=== PATIENT | female | born 1995 | race Caucasian/White ===

== ENCOUNTER 2019-03-08 04:45 | Inpatient (IN) ==
[2019-03-08] MEDS ORDERED: ZOFRAN IV PRN (04:50)
[2019-03-08] MEDS ORDERED: REGLAN PO ONE (04:50)
[2019-03-08] MEDS ORDERED: STADOL IV PRN (04:50)
[2019-03-08] MEDS ORDERED: PEPCID PO ONE (04:50)
[2019-03-08] MEDS ORDERED: PEPCID PO PRN (04:50)
[2019-03-08] MEDS ORDERED: PEPCID IV PRN (04:50)
[2019-03-08] MEDS ORDERED: KEFZOL 1 GM/D5W 1 GM/50 ML IVPB IV PRN (04:50)
[2019-03-08] MEDS ORDERED: TYLENOL PO PRN (04:50)
[2019-03-08] MEDS ORDERED: SODIUM CHLORIDE 0.9% INJ SCH (05:00)
[2019-03-08] MEDS ORDERED: LR 1,000 ML IV SCH (05:00)
[2019-03-08] MEDS ORDERED: PITOCIN 30 UNITS/NS 30 UNIT/500 ML IV.SOLN IV SCH ×2 (06:30→15:15)
[2019-03-08 06:33] LABS: URINE SOURCE VOIDED
[2019-03-08 06:35] LABS: BASO# 0.02 X1000 (0.0-0.2); BASO% 0.2 % (0.0-0.8); EOS# 0.06 X1000 (0.0-0.7); EOS% 0.7 % (0.0-10.0); HEMATOCRIT 35.5 % (37.0-47.0); HEMOGLOBIN 11.2 g/dL (12.0-16.0); IMM GRAN# 0.03 X1000 (0.0-0.04); IMM GRAN% 0.3 % (0.0-0.5); LYMPH# 1.42 X1000 (1.2-3.4); LYMPH% 15.4 % (20.5-51.1); MCH 25.9 PG (27-31); MCHC 31.5 g/dL (33-37); MONO# 0.77 X1000 (0.11-0.59); MONO% 8.4 % (1.7-9.3); MPV 12.2 FL (7.4-10.4); PLT 166 X1000 (130-400); RBC 4.33 XMIL (4.2-5.4); RDW 14.1 % (11.5-14.5)
[2019-03-08 06:37] LABS: BILIRUBIN URINE NEGATIVE (NEGATIVE); BLOOD URINE NEGATIVE (NEGATIVE); COLOR YELLOW; GLUCOSE URINE NEGATIVE (NEGATIVE); KETONE URINE NEGATIVE (NEGATIVE); LEUKOCYTES URINE MODERATE (NEGATIVE); NITRITE URINE NEGATIVE (NEGATIVE); PH URINE 6.5; PROTEIN URINE NEGATIVE (NEGATIVE); SP GRAVITY URINE 1.019; TURBIDITY URINE CLEAR (CLEAR); UROBILINOGEN URINE NORMAL (NORMAL)
[2019-03-08 06:49] LABS: UR AMPHETAMINES QUAL NONE DETECTED (NONE DETECT); UR BARBITUATES QUAL NONE DETECTED (NONE DETECT); UR BENZODIAZEPIN QUAL NONE DETECTED (NONE DETECT); UR CANNABINOIDS QUAL NONE DETECTED (NONE DETECT); UR COCAINE QUAL NONE DETECTED (NONE DETECT); UR METHADONE QUAL NONE DETECTED (NONE DETECT); UR OPIATES QUAL NONE DETECTED (NONE DETECT); UR OXYCODONE QUAL NONE DETECTED (NONE DETECT); UR PCP QUAL NONE DETECTED (NONE DETECT)
[2019-03-08] MEDS ORDERED: FENTANYL-BUPIV-NS 500 MCG-0.125% 250 ML EPIDURAL PRN (09:24)
[2019-03-08] MEDS ORDERED: NAROPIN 0.2% INJ ONE (09:30)
--- NOTE | 2019-03-08 11:10 | HISTORY AND PHYSICAL ---
HISTORY OF PRESENT ILLNESS: Ms. Palacio is a 24-year-old, G3, P1-0-1-1, at 39 weeks and 1 day, who presents to Labor and Delivery for a scheduled induction of labor. The patient reports good movement. Denies contractions, leakage of fluid, or vaginal bleeding. History is significant for isolated seizures in the setting of general anesthesia. EEG was completed during current and found to be normal. The patient was evaluated throughout by Maternal Medicine. Currently not on any anticonvulsant medications. CURRENT MEDICATIONS: vitamins. ALLERGIES: No known drug allergies. PAST MEDICAL HISTORY: Exercise-induced asthma, anesthesia-induced isolated seizure. PAST SURGICAL HISTORY: Cholecystectomy, wisdom teeth extraction. FAMILY HISTORY: Maternal aunt with breast cancer. Maternal grandmother with ovarian cancer. OB HISTORY: [place], [place]-0[place]1-1, one prior SAB, one prior full-term vaginal delivery at 39 weeks, weighing 8 pounds 1 ounce. 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 Admits to regular menstrual cycles. SOCIAL HISTORY: Denies tobacco, alcohol, or drug use. PHYSICAL EXAMINATION: VITAL SIGNS: Temperature 98.4 degrees, pulse rate 95, respiration rate 20, blood pressure 123/72, O2 sats 97% on room air. Weight 180 pounds, height 5 feet 7 inches tall, body mass index 28.2 kg/m2. GENERAL: No acute distress. Alert, awake, oriented x3. CARDIOVASCULAR: Regular rate and rhythm. Positive S1, S2. RESPIRATORY: Clear to auscultation bilaterally. Negative rhonchi, rales, or wheezing. ABDOMEN: Gravid, soft, nontender to palpation. EXTREMITIES: Negative calf tenderness. There is +1 edema. PELVIC: Sterile vaginal exam, 3 cm dilated, 60% effaced, -3 station. Electronic monitoring, category 1 tracing. LABORATORY DATA: WBCs 9.2, hemoglobin 11.2, hematocrit 35.5, platelets 166,000. GBS negative. RPR nonreactive. ASSESSMENT: Mrs. Palacio is a 24-year-old, G3, P1-0-1-1, at 39 weeks and 1 day, who presents to Labor and Delivery for scheduled induction of labor. PLAN: 1. Admit to Labor and Delivery for scheduled induction. 2. Obtain routine labor labs. 3. Continuous electronic monitoring. 4. Induction with Pitocin and possible artificial rupture of membrane. 5. Does not desire epidural for pain management. 6. The patient is status post Tdap and influenza vaccine in antepartum. 7. Patient counseled on alternatives, risks, and benefits of induction of labor. Risks not limited to infection, bleeding, vaginal laceration, emergency delivery. The patient understands the risks, and agrees to procedure. 8. Estimated weight 8 pounds. 9. Anticipate vaginal delivery.
[2019-03-08] MEDS ORDERED: MINERAL OIL TOP PRN (12:58)
[2019-03-08] MEDS ORDERED: XYLOCAINE-MPF 1% INJ PRN ×2 (12:59→15:04)
[2019-03-08] MEDS ORDERED: FENTANYL IV ONE (13:40)
[2019-03-08] MEDS ORDERED: PERI MEDS (DERMOPLAST/NUPERCAINAL/TUCKS) MISC PRN (15:04)
[2019-03-08] MEDS ORDERED: BENADRYL IV PRN (15:04)
[2019-03-08] MEDS ORDERED: CYTOTEC PO PRN (15:04)
[2019-03-08] MEDS ORDERED: HYDROXYZINE IM PRN (15:04)
[2019-03-08] MEDS ORDERED: AMBIEN PO PRN (15:04)
[2019-03-08] MEDS ORDERED: PITOCIN IM PRN (15:04)
[2019-03-08] MEDS ORDERED: BOOSTRIX VACCINE IM ONE (15:04)
[2019-03-08] MEDS ORDERED: M-M-R II VACCINE SUBQ ONE (15:04)
[2019-03-08] MEDS ORDERED: MINERAL OIL PO PRN (15:04)
[2019-03-08] MEDS ORDERED: ATARAX PO PRN (15:04)
[2019-03-08] MEDS ORDERED: BENADRYL PO PRN (15:04)
[2019-03-08] MEDS ORDERED: PITOCIN 20 UNITS/NS 20 UNITS/1,000 ML IV.SOLN IV SCH (15:15)
[2019-03-08] MEDS: MOTRIN PO PRN (16:07)
[2019-03-08] MEDS: PERICOLACE PO SCH (22:25)
--- NOTE | 2019-03-08 22:31 | OPERATIVE NOTE ---
PROCEDURE DATE: 03/08/2019 PROCEDURE PERFORMED: Spontaneous vaginal delivery. SURGEON: Dr. Elsie Plata. TYPEWRITER MECHANIC: None. DESCRIPTION OF PROCEDURE: The patient delivered a viable male at 39 weeks and 1 day, weighing 8 pounds 7 ounces with Apgars of 8 at 10 at 1 and 5 minutes respectively. The vertex was delivered spontaneously over intact perineum. No nuchal cord was identified. The anterior shoulders were delivered atraumatically by maternal expulsive forces and the assistance of downward traction. The posterior shoulder delivered with maternal expulsive efforts and upward traction. The remainder of the fetus delivered spontaneously. Upon delivery, the infant was placed on the patient's chest and abdomen and assessed by waiting financial aid manager staff. Cord blood was obtained for blood gases. To enhance uterine contractions, IV oxytocin was administered post delivery of placenta. The cervix, vagina, and perineum were inspected for lacerations. A second- degree laceration was noted at the perineum and repaired with 2-0 chromic. Good hemostasis was obtained. ESTIMATED BLOOD LOSS: 200 mL.
[2019-03-09] MEDS: MOTRIN PO PRN ×3 (03:00→23:37)
[2019-03-09 07:51] LABS: BASO# 0.02 X1000 (0.0-0.2); BASO% 0.2 % (0.0-0.8); EOS# 0.05 X1000 (0.0-0.7); EOS% 0.5 % (0.0-10.0); HEMATOCRIT 34.6 % (37.0-47.0); HEMOGLOBIN 10.6 g/dL (12.0-16.0); IMM GRAN# 0.03 X1000 (0.0-0.04); IMM GRAN% 0.3 % (0.0-0.5); LYMPH# 1.46 X1000 (1.2-3.4); LYMPH% 13.2 % (20.5-51.1); MCH 25.6 PG (27-31); MCHC 30.6 g/dL (33-37); MCV 83.6 FL (81-99); MONO% 8.1 % (1.7-9.3); MPV 11.9 FL (7.4-10.4); NEUT# 8.62 X1000 (1.4-6.5); NEUT% 77.7 % (42.2-75.2); PLT 156 X1000 (130-400); RBC 4.14 XMIL (4.2-5.4); RDW 14.3 % (11.5-14.5); WBC 11.08 X1000 (4.8-10.8)
--- NOTE | 2019-03-09 13:03 | OB/GYN PROGRESS NOTE ---
- Subjective now PPD#1 S/P . Doing well, no c/o. and going well per patient. No CP or SOB. NO leg pains. Lochia minimal per patient. Tolerating regular diet. Ambulating and voiding OK. Flatus present. OB Physical Exam Vital Signs - 8 hr 03/09/19 08:00 Temperature 96.6 F L Pulse Rate 84 Blood Pressure 121/67 O2 Sat by Pulse Oximetry 95 - CONSTITUTIONAL General Appearance: appears well, alert, no apparent distress - RESPIRATORY Respiratory: lungs clear, normal breath sounds - CARDIOVASCULAR Cardiovascular: normal peripheral pulses, regular rate, rhythm, no edema - CHEST (BREASTS) Chest/Breast: deferred - GASTROINTESTINAL (ABDOMEN) Abdominal Exam: normal bowel sounds, non tender, soft, other (uterus firm, below umbilicus. No rebound or guarding. Mild tympany and gaseous distention.) - GENITOURINARY Female Genitalia/Pelvic Exam: external exam normal, other (minimal blood on pad noted. 2nd degree laceration repair in notes. Well appoximated and no edema noted.) - MUSCULOSKELETAL Extremity: non-tender, no pedal edema, no calf tenderness - PSYCHIATRIC Psych/Mental Status: normal mood/affect, oriented x 3 Active Medications Generic Name Dose Route Start Last Admin Trade Name Freq PRN Reason Stop Dose Admin Acetaminophen 650 mg 03/08/19 04:50 03/08/19 22:25 Tylenol PO 650 mg Q4-6H PRN PRN Administration Headache Benzocaine 1 each 03/08/19 15:04 03/08/19 16:47 Graciela Meds (Dermoplast/Nupercainal/Tucks) MISC 1 applic 3-4XDAY PRN PRN Administration episiotomy/hemorrhoids Butorphanol Tartrate 2 mg 03/08/19 04:50 03/08/19 13:30 Stadol IV 2 mg PRN PRN Administration Pain Diphenhydramine HCl 12.5 mg 03/08/19 15:04 Benadryl IV Q4H PRN PRN Itching Diphenhydramine HCl 25 mg 03/08/19 15:04 Benadryl PO Q4H PRN PRN Itching Famotidine 40 mg 03/08/19 04:50 Pepcid PO Q12H PRN PRN GI upset or indigestion Famotidine 20 mg 12/19/19 04:50 Pepcid IV Q12H PRN PRN GI upset or indigestion Hydroxyzine HCl 50 mg 03/08/19 15:04 Atarax PO Q3-4H PRN PRN Nausea Hydroxyzine HCl 50 mg 03/08/19 15:04 Hydroxyzine IM Q3-4H PRN PRN Nausea Cefazolin Sodium/Dextrose 1 gm in 50 mls @ 100 mls/hr 03/08/19 04:50 Kefzol 1 Gm/D5w IV ONCE PRN PRN SECTION Lactated Ringer's 1,000 mls @ 0 mls/hr 03/08/19 05:00 03/08/19 06:00 Lr IV 125 mls/hr .Q0M CORY Administration As Directed Oxytocin/Sodium Chloride 30 unit in 500 mls @ 0 mls/hr 03/08/19 06:30 03/08/19 07:00 Pitocin 30 Units/Ns IV 2 mls/hr .Q0M CORY Administration As Directed Fentanyl/Bupivacaine/Sodium Chlor 250 mls @ 0 mls/hr 03/08/19 09:24 [id number] 500 Mcg-0.125% EPIDURAL .Q0M PRN As Directed Oxytocin/Sodium Chloride 20 units in 1,000 mls @ 0 mls/hr 03/08/19 15:15 03/08/19 16:00 Pitocin 20 Units/Ns IV 125 mls/hr .Q0M CORY Administration As Directed Oxytocin/Sodium Chloride 30 unit in 500 mls @ 500 mls/hr 03/08/19 15:15 03/08/19 14:21 Pitocin 30 Units/Ns IV 500 mls/hr .Q1H CORY Administration Ibuprofen 800 mg 03/08/19 15:04 03/09/19 03:00 Motrin PO 800 mg Q8H PRN PRN Administration cramping Lidocaine HCl 30 ml 03/08/19 12:59 03/08/19 14:23 Xylocaine-Mpf 1% INJ 30 ml PRN PRN Administration Episiotomy repair Lidocaine HCl 30 ml 03/08/19 15:04 Xylocaine-Mpf 1% INJ PRN PRN Perineal repair Mineral Oil 30 ml 03/08/19 12:58 Mineral Oil TOP PRN PRN Vaginal delivery Mineral Oil 30 ml 03/08/19 15:04 Mineral Oil PO PRN PRN Perineal massage Misoprostol 800 microgm 03/08/19 15:04 Cytotec PO PRN PRN Severe bleeding Ondansetron HCl 4 mg 03/08/19 04:50 03/08/19 13:30 Zofran IV 4 mg PRN PRN Administration Nausea Oxytocin 20 unit 03/08/19 15:04 Pitocin IM PRN PRN Severe bleeding Senna/Docusate Sodium 1 each 03/08/19 21:00 03/08/19 22:25 Pericolace PO 1 each QHS CORY Administration Sodium Chloride 5 - 10 ml 03/08/19 05:00 Sodium Chloride 0.9% INJ DIRECTED CORY Zolpidem Tartrate 10 mg 03/08/19 15:04 Ambien PO HS PRN PRN Sleep Laboratory Results - last 24 hr 03/09/19 07:29 WBC 11.08 H RBC 4.14 L Hgb 10.6 L Hct 34.6 L MCV 83.6 MCH 25.6 L MCHC 30.6 L RDW Std Deviation 14.3 Plt Count 156 MPV 11.9 H Immature Gran % (Auto) 0.3 Neut % (Auto) 77.7 H Lymph % (Auto) 13.2 L [place] % (Auto) 8.1 Eos % (Auto) 0.5 Baso % (Auto) 0.2 Immature Gran # (Auto) 0.03 Neut # (Auto) 8.62 H Lymph # (Auto) 1.46 [place] # (Auto) 0.90 H Eos # (Auto) 0.05 Baso # (Auto) 0.02 OB Assessment & Plan (1) Status post vaginal delivery Status: Acute Plan: 1. Doing well, stable, continue PP care. Mild gaseous distention. Discussed ellen tea or MOM use. 2. -- encouragement given and discussed increase in water/fluid intake. Continue PNV use daily. 3. Ambulation encouraged. 4. Anticipate D/C home tomorrow. Flu vaccine and TDap given . Rubella Immune 5. Patient is considering control options and likely pill use or implant. Discussed importance of keeping 6 week post check. 6. Hgb pre 11.2 and post 10.6. Asymptomatic.
[2019-03-09] MEDS: PERICOLACE PO SCH (21:02)
[2019-03-10] MEDS: MOTRIN PO PRN (08:00)
--- NOTE | 2019-03-10 08:05 | OB/GYN PROGRESS NOTE ---
- Subjective now PPD#2 S/P . Doing well, no c/o. and going well per patient. No CP or SOB. NO leg pains. Lochia minimal per patient. Tolerating regular diet. Ambulating and voiding OK. Flatus present. BM yesterday no issues. Ready to go home. OB Physical Exam - CONSTITUTIONAL General Appearance: appears well, alert, no apparent distress - RESPIRATORY Respiratory: lungs clear, normal breath sounds - CARDIOVASCULAR Cardiovascular: normal peripheral pulses, regular rate, rhythm - CHEST (BREASTS) Chest/Breast: deferred - GASTROINTESTINAL (ABDOMEN) Abdominal Exam: normal bowel sounds, non tender, soft, other (Uterus firm below umbilicus Less gaseous distention and tympany today) - GENITOURINARY Female Genitalia/Pelvic Exam: external exam normal, other (scant blood on pad. External genitalia well approximated and no edema.) - MUSCULOSKELETAL Extremity: non-tender, no calf tenderness - PSYCHIATRIC Psych/Mental Status: normal mood/affect, oriented x 3 Active Medications Generic Name Dose Route Start Last Admin Trade Name Freq PRN Reason Stop Dose Admin Acetaminophen 650 mg 03/08/19 04:50 03/08/19 22:25 Tylenol PO 650 mg Q4-6H PRN PRN Administration Headache Benzocaine 1 each 03/08/19 15:04 03/08/19 16:47 Graciela Meds (Dermoplast/Nupercainal/Tucks) MISC 1 applic 3-4XDAY PRN PRN Administration episiotomy/hemorrhoids Diphenhydramine HCl 12.5 mg 03/08/19 15:04 Benadryl IV Q4H PRN PRN Itching Diphenhydramine HCl 25 mg 03/08/19 15:04 Benadryl PO Q4H PRN PRN Itching Famotidine 40 mg 03/08/19 04:50 Pepcid PO Q12H PRN PRN GI upset or indigestion Famotidine 20 mg 03/08/19 04:50 Pepcid IV Q12H PRN PRN GI upset or indigestion Hydroxyzine HCl 50 mg 03/08/19 15:04 Atarax PO Q3-4H PRN PRN Nausea Hydroxyzine HCl 50 mg 03/08/19 15:04 Hydroxyzine IM Q3-4H PRN PRN Nausea Fentanyl/Bupivacaine/Sodium Chlor 250 mls @ 0 mls/hr 03/08/19 09:24 [id number]-Czklm-Zd 500 Mcg-0.125% EPIDURAL .Q0M PRN As Directed Ibuprofen 800 mg 03/08/19 15:04 03/09/19 23:37 Motrin PO 800 mg Q8H PRN PRN Administration cramping Lidocaine HCl 30 ml 03/08/19 12:59 03/08/19 14:23 Xylocaine-Mpf 1% INJ 30 ml PRN PRN Administration Episiotomy repair Lidocaine HCl 30 ml 03/08/19 15:04 Xylocaine-Mpf 1% INJ PRN PRN Perineal repair Mineral Oil 30 ml 03/08/19 12:58 Mineral Oil TOP PRN PRN Vaginal delivery Mineral Oil 30 ml 03/08/19 15:04 Mineral Oil PO PRN PRN Perineal massage Misoprostol 800 microgm 03/08/19 15:04 Cytotec PO PRN PRN Severe bleeding Oxytocin 20 unit 03/08/19 15:04 Pitocin IM PRN PRN Severe bleeding Senna/Docusate Sodium 1 each 03/08/19 21:00 03/09/19 21:02 Pericolace PO 1 each QHS CORY Administration Sodium Chloride 5 - 10 ml 03/08/19 05:00 Sodium Chloride 0.9% INJ DIRECTED CORY Zolpidem Tartrate 10 mg 03/08/19 15:04 Ambien PO HS PRN PRN Sleep Laboratory Results - last 24 hr 03/09/19 07:29 WBC 11.08 H RBC 4.14 L Hgb 10.6 L Hct 34.6 L MCV 83.6 MCH 25.6 L MCHC 30.6 L RDW Std Deviation 14.3 Plt Count 156 MPV 11.9 H Immature Gran % (Auto) 0.3 Neut % (Auto) 77.7 H Lymph % (Auto) 13.2 L [place] % (Auto) 8.1 Eos % (Auto) 0.5 Baso % (Auto) 0.2 Immature Gran # (Auto) 0.03 Neut # (Auto) 8.62 H Lymph # (Auto) 1.46 [place] # (Auto) 0.90 H Eos # (Auto) 0.05 Baso # (Auto) 0.02 OB Assessment & Plan (1) Discharged to home Status: Acute Plan: Doing well, stable - discharge to home (2) Status post vaginal delivery Status: Acute Plan: DISCHARGE NOTE 1. Doing well, stable - Discharge to home. 2. -- encouragement given and discussed increase in water/fluid intake. 3. Follow-up with PP check in 6 weeks. 4. Motrin 600mg po q 6 hours prn use. Rx given. Discussed with patient can get OTC as well. Continue PNV use daily. 5. Flu vaccine and TDap given . Rubella Immune 5. Patient is considering control options and likely pill use or implant. Discussed importance of keeping 6 week post check. 6. Discharge instructions discussed. NO sex or tampon use for 6 weeks. NO heavy lifting - baby or less for 4-6 weeks and then gradual increase in weight. No driving for 2 weeks or until pain free encouraged.
[2019-03-10 08:42] VITALS: BP 113/65
== END 2019-03-10 11:55 | disposition home or self-care (01) | DRG 807 ==
LOC: LD 04:45
PROVIDERS: ADMIT Obstetrics & Gynecology; ATTEND Obstetrics & Gynecology